=== PATIENT | male | born 1960 | race Two or more races ===

== ENCOUNTER 2024-06-28 16:14 | Inpatient (IN) | payer OTHER ==
[~2024-06-28] VITALS: Ht 162.6 cm; Wt 68.5 kg
[2024-06-28] VITALS: BP 169/71; TEMP 98.2; O2SAT 98
[2024-06-28 08:00] VITALS: BP 93/67; TEMP 98.2; O2SAT 96
[2024-06-28 17:00] LABS: BASOPHILS # (AUTO) 0.1 K/uL (0.0-0.2); BASOPHILS % (AUTO) 1.1 % (0.0-2.0); EOSINOPHILS # (AUTO) 0.3 K/uL (0.0-0.7); EOSINOPHILS % (AUTO) 5.4 % (0.0-6.0); HEMATOCRIT 30 % (39-51); HEMOGLOBIN 10.2 g/dL (13.5-17.5); LYMPHOCYTES # (AUTO) 1.1 K/uL (0.8-4.8); LYMPHOCYTES % (AUTO) 18.8 % (20.0-44.0); MEAN CORPUSCULAR HEMOGLOBIN 33 PG (26.0-33.0); MEAN CORPUSCULAR HGB CONC 34 g/dl (31.0-36.0); MEAN CORPUSCULAR VOLUME 97 fL (80-96); MONOCYTES # (AUTO) 0.5 K/uL (0.1-1.30); MONOCYTES % (AUTO) 8.3 % (2.0-12.0); NEUTROPHILS # (AUTO) 3.8 K/uL (1.8-8.9); NEUTROPHILS % (AUTO) 66.4 % (43.0-81.0); PLATELET COUNT (AUTO) 284 K/uL (150-450); RED BLOOD CELL COUNT(AUTO) 3.08 MIL/uL (4.5-6.0); RED CELL DISTRIBUTION WIDTH 14.5 % (11.5-15.0); WHITE BLOOD COUNT (AUTO) 5.7 K/uL (4.3-11.0)
[2024-06-28 17:07] LABS: CALCIUM, SERUM 9.3 mg/dL (8.5-10.1); CARBON DIOXIDE 36 mmol/L (21-32); CHLORIDE 96 mmol/L (98-107); CREATININE 3.4 mg/dL (0.6-1.3); GLUCOSE 149 mg/dL (74-106); POTASSIUM 4.6 mmol/L (3.5-5.1); SODIUM SERUM 135 mmol/L (136-145); UREA NITROGEN, BLOOD 14 mg/dL (7-18)
[2024-06-28] MEDS ORDERED: MORPHINE SULFATE INJ 4 MG/ML DISP.SYRIN ONE (17:15)
[2024-06-28] MEDS ORDERED: ONDANSETRON HCL/PF 4 MG/2 ML VIAL ONE (17:15)
[2024-06-28] MEDS: ONDANSETRON HCL/PF 4 MG/2 ML VIAL IVP ONE (17:24)
[2024-06-28] MEDS: MORPHINE SULFATE INJ 2 MG/ML DISP.SYRIN IV ONE (17:24)
[2024-06-28] MEDS ORDERED: LOSA100T31 PO (17:33)
[2024-06-28] MEDS ORDERED: GABA300C PO (17:33)
[2024-06-28] MEDS ORDERED: INSU100I30 SQ (17:33)
[2024-06-28] MEDS ORDERED: DAPA10TA PO (17:33)
[2024-06-28] MEDS ORDERED: SEVE400T3 PO (17:33)
[2024-06-28 20:00] VITALS: TEMP 97.5; O2SAT 99
[2024-06-28] MEDS ORDERED: ACETAMINOPHEN 325 MG TABLET PO PRN (20:30)
[2024-06-28] MEDS ORDERED: DEXTROSE 50%-WATER 50 ML DISP.SYRIN IV PRN (20:30)
[2024-06-28] MEDS ORDERED: GABAPENTIN 300 MG CAPSULE PO PRN (20:30)
[2024-06-28] MEDS ORDERED: ZOLPIDEM TARTRATE 5 MG TABLET PO PRN (20:30)
[2024-06-28] MEDS ORDERED: Z GUARD REMEDY 4 OZ OINT TP PRN (20:30)
[2024-06-28] MEDS ORDERED: MAG HYDROX/AL HYDROX/SIMETH 30 ML UDC PO PRN (20:30)
[2024-06-28] MEDS ORDERED: ONDANSETRON HCL/PF 4 MG/2 ML VIAL IVP PRN (20:30)
[2024-06-28] MEDS ORDERED: MAGNESIUM HYDROXIDE 30 ML UDC PO PRN (20:30)
[2024-06-28 21:00] VITALS: BP 190/99; TEMP 97.5; O2SAT 99
[2024-06-28] MEDS: BLOOD SUGAR DIAGNOSTIC 1 EACH STRIP VI SCH (22:30)
[2024-06-28] MEDS: HYDROCODONE/APAP 5/325MG TABLET PO PRN (22:33)
[2024-06-28] MEDS: *INSULIN REGULAR(HUMULIN R)HUM 100 UNIT/ML VIAL SQ PRN (22:37)
[2024-06-29] VITALS (7 sets, daily range): BP systolic 149–190; BP diastolic 75–89; TEMP 97.7–99.2; O2SAT 96–99
[2024-06-29] MEDS: hydrALAZINE HCL IV 20 MG VIAL IV PRN (04:41)
[2024-06-29] MEDS: INSULIN REGULAR, HUMAN 100 UNIT/ML 3 ML VIAL SQ PRN (07:01)
[2024-06-29 07:44] LABS: BASOPHILS # (AUTO) 0.1 K/uL (0.0-0.2); BASOPHILS % (AUTO) 0.9 % (0.0-2.0); EOSINOPHILS # (AUTO) 0.5 K/uL (0.0-0.7); EOSINOPHILS % (AUTO) 5.1 % (0.0-6.0); HEMATOCRIT 30 % (39-51); LYMPHOCYTES # (AUTO) 1.1 K/uL (0.8-4.8); LYMPHOCYTES % (AUTO) 12.5 % (20.0-44.0); MEAN CORPUSCULAR HEMOGLOBIN 33 PG (26.0-33.0); MEAN CORPUSCULAR HGB CONC 34 g/dl (31.0-36.0); MEAN CORPUSCULAR VOLUME 98 fL (80-96); MONOCYTES # (AUTO) 0.7 K/uL (0.1-1.30); MONOCYTES % (AUTO) 8.3 % (2.0-12.0); NEUTROPHILS # (AUTO) 6.4 K/uL (1.8-8.9); NEUTROPHILS % (AUTO) 73.2 % (43.0-81.0); PLATELET COUNT (AUTO) 256 K/uL (150-450); RED BLOOD CELL COUNT(AUTO) 3.03 MIL/uL (4.5-6.0); WHITE BLOOD COUNT (AUTO) 8.8 K/uL (4.3-11.0)
[2024-06-29] MEDS: DAPAGLIFLOZIN PROPANEDIOL 5 MG TABLET PO SCH (08:00)
[2024-06-29] MEDS: SEVELAMER CARBONATE 800 MG TABLET PO SCH (08:00)
[2024-06-29] MEDS: PANTOPRAZOLE 40 MG TABLET.DR PO SCH (08:06)
[2024-06-29] MEDS: LOSARTAN POTASSIUM 50 MG TABLET PO SCH (08:19)
[2024-06-29 08:42] LABS: CALCIUM, SERUM 8.4 mg/dL (8.5-10.1); CREATININE 4.8 mg/dL (0.6-1.3); MAGNESIUM 2.2 mg/dL (1.8-2.4); PHOSPHORUS 4.2 mg/dL (2.5-4.9); POTASSIUM 4.5 mmol/L (3.5-5.1)
[2024-06-29] MEDS ORDERED: PANTOPRAZOLE 40 MG VIAL IV SCH (09:00)
[2024-06-29 09:41] LABS: CHOLESTEROL 137 mg/dL (<200); HDL CHOLESTEROL 40 mg/dL (40-60); LDL 65 mg/dL (0-99); TRIGLYCERIDES 184 mg/dL (30-150)
[2024-06-29] MEDS: ASPIRIN 81 MG TAB.CHEW PO SCH (10:10)
[2024-06-29] MEDS: ATORVASTATIN 10 MG TABLET PO SCH (10:10)
[2024-06-30] VITALS: BP 134/70; TEMP 97.4; TEMP 97.9; O2SAT 96
[2024-06-30 04:00] VITALS: BP 160/83; TEMP 97.8; O2SAT 99
[2024-06-30 07:32] LABS: BASOPHILS # (AUTO) 0.1 K/uL (0.0-0.2); EOSINOPHILS # (AUTO) 0.5 K/uL (0.0-0.7); EOSINOPHILS % (AUTO) 6.7 % (0.0-6.0); HEMATOCRIT 30 % (39-51); LYMPHOCYTES # (AUTO) 1.4 K/uL (0.8-4.8); LYMPHOCYTES % (AUTO) 17.8 % (20.0-44.0); MEAN CORPUSCULAR HEMOGLOBIN 33 PG (26.0-33.0); MEAN CORPUSCULAR HGB CONC 34 g/dl (31.0-36.0); MEAN CORPUSCULAR VOLUME 97 fL (80-96); MONOCYTES # (AUTO) 0.6 K/uL (0.1-1.30); MONOCYTES % (AUTO) 8.5 % (2.0-12.0); PLATELET COUNT (AUTO) 252 K/uL (150-450); RED BLOOD CELL COUNT(AUTO) 3.03 MIL/uL (4.5-6.0); RED CELL DISTRIBUTION WIDTH 14.8 % (11.5-15.0); WHITE BLOOD COUNT (AUTO) 7.6 K/uL (4.3-11.0)
[2024-06-30 07:46] LABS: CALCIUM, SERUM 8.4 mg/dL (8.5-10.1); CREATININE 7.3 mg/dL (0.6-1.3); POTASSIUM 4.7 mmol/L (3.5-5.1)
[2024-06-30] MEDS ORDERED: ATORVASTATIN 10 MG TABLET PO SCH (09:00)
[2024-06-30] MEDS: ATORVASTATIN 10 MG TABLET PO ONE (09:35)
[2024-06-30 09:36] VITALS: BP 131/74
[2024-06-30 17:27] VITALS: BP 172/88
[2024-07-01] MEDS ORDERED: ATORVASTATIN 10 MG TABLET PO SCH (09:00)
[2024-07-06 03:12] LABS: HEPATITIS B SURFACE AB Reactive (.)
== END 2024-06-30 19:30 | disposition home or self-care (01) | DRG 203 ==
LOC: ER 16:32 → TELE 20:22 → MED 06-30 10:07
PROVIDERS: ATTEND Internal Medicine
PROC: 5A1D70Z Performance of Urinary Filtration, Intermittent, Less than 6 Hours Per Day (ICD-10-PCS; principal; 2024-06-30)
DX: M94.0 Chondrocostal junction syndrome [Tietze] (principal); I12.0 Hypertensive chronic kidney disease with stage 5 chronic kidney disease or end stage renal disease; E11.22 Type 2 diabetes mellitus with diabetic chronic kidney disease; N18.6 End stage renal disease; D63.1 Anemia in chronic kidney disease; D53.9 Nutritional anemia, unspecified; Z99.2 Dependence on renal dialysis; Z79.4 Long term (current) use of insulin; N25.0 Renal osteodystrophy
CPT/HCPCS: 36415; 71045-TC; 80048-TC; 80061-TC; 82962-TC; 83735-TC; 84100-TC; 84484-TC; 85025-TC; 86705; 86706; 87340; 90935-TC; 93307-TC; G0378; J0360; J1815; J2270; J2405; J7030

== ENCOUNTER 2025-08-10 09:02 | Inpatient (IN) | payer OTHER ==
[~2025-08-10] VITALS: Ht 152.4 cm; Wt 65.8 kg
[~2025-08-10 09:02] MED LIST: DAPA10TA PO; GABA300C PO; INSU100I30 SQ; LOSA100T31 PO; SEVE400T3 PO
[2025-08-10 09:37] LABS: PLATELET COUNT (AUTO) 170 K/uL (150-450); RED BLOOD CELL COUNT(AUTO) 3.57 MIL/uL (4.5-6.0); RED CELL DISTRIBUTION WIDTH 13.6 % (11.5-15.0); WHITE BLOOD COUNT (AUTO) 6.4 K/uL (4.3-11.0)
[2025-08-10 09:45] LABS: CALCIUM, SERUM 7.9 mg/dL (8.5-10.1); CREATININE 4.2 mg/dL (0.6-1.3); SODIUM SERUM 134 mmol/L (136-145); UREA NITROGEN, BLOOD 22 mg/dL (7-18)
[2025-08-10 09:58] LABS: NT-PRO BNP > 25000 pg/mL (0-125)
[2025-08-10] MEDS ORDERED: CINA30TA6 PO (11:17)
[2025-08-10] MEDS ORDERED: HYDR-4077 PO (11:17)
[2025-08-10] MEDS ORDERED: NIFE-34 PO (11:17)
[2025-08-10] MEDS ORDERED: LOSA50TA39 PO (11:17)
[2025-08-10] MEDS ORDERED: DOXA4TAB19 PO (11:17)
[2025-08-10] MEDS ORDERED: CYCL10TA9 PO (11:17)
[2025-08-10] MEDS ORDERED: SEVE800T28 PO (11:17)
[2025-08-10] MEDS ORDERED: MAG HYDROX/AL HYDROX/SIMETH 30 ML UDC PO PRN (12:00)
[2025-08-10] MEDS ORDERED: MAGNESIUM HYDROXIDE 30 ML UDC PO PRN (12:00)
[2025-08-10] MEDS ORDERED: Z GUARD REMEDY 4 OZ OINT TP PRN (12:00)
[2025-08-10] MEDS ORDERED: ONDANSETRON HCL/PF 4 MG/2 ML VIAL IVP PRN (12:00)
[2025-08-10] MEDS ORDERED: DEXTROSE 50%-WATER 50 ML DISP.SYRIN IV PRN (13:00)
[2025-08-10] MEDS ORDERED: CYCLOBENZAPRINE 10 MG TABLET PO PRN (13:00)
[2025-08-10 16:00] VITALS: BP 194/90; TEMP 97.3; O2SAT 98
[2025-08-10] MEDS: GABAPENTIN 300 MG CAPSULE PO SCH (16:31)
[2025-08-10] MEDS: LOSARTAN POTASSIUM 50 MG TABLET PO SCH (16:31)
[2025-08-10] MEDS: DOXAZOSIN MESYLATE (4 MG) 4 MG TABLET PO SCH (16:31)
[2025-08-10] MEDS: BLOOD SUGAR DIAGNOSTIC 1 EACH STRIP VI SCH (16:49)
[2025-08-10] MEDS: INSULIN REGULAR, HUMAN 100 UNIT/ML 3 ML VIAL SQ PRN (17:33)
[2025-08-10] MEDS: SEVELAMER CARBONATE 800 MG TABLET PO SCH (18:14)
[2025-08-10 20:00] VITALS: BP 186/82; TEMP 98.8; O2SAT 94
[2025-08-10] MEDS: CLONIDINE HCL 0.1 MG TABLET PO PRN (20:10)
[2025-08-10] MEDS: HEPARIN SODIUM, PORCINE 5000 UNITS/1 ML VIAL SQ ONE (20:46)
[2025-08-10] MEDS: ACETAMINOPHEN 325 MG TABLET PO PRN (21:27)
[2025-08-10 21:50] VITALS: BP 172/72
[2025-08-10 22:35] VITALS: BP 162/68
[2025-08-11] VITALS (8 sets, daily range): BP systolic 160–194; BP diastolic 75–94; TEMP 97.5–98.4; O2SAT 94–97
[2025-08-11] MEDS: *INSULIN REGULAR(HUMULIN R)HUM 100 UNIT/ML VIAL SQ PRN (00:15)
[2025-08-11] MEDS: CLONIDINE HCL 0.1 MG TABLET PO ONE (02:45)
[2025-08-11] MEDS ORDERED: TRAM50TA2 PO (03:11)
[2025-08-11] MEDS: TRAMADOL HCL 50 MG TABLET PO ONE (03:16)
[2025-08-11 06:50] LABS: PLATELET COUNT (AUTO) 167 K/uL (150-450); RED BLOOD CELL COUNT(AUTO) 3.59 MIL/uL (4.5-6.0); RED CELL DISTRIBUTION WIDTH 13.8 % (11.5-15.0); WHITE BLOOD COUNT (AUTO) 7.7 K/uL (4.3-11.0)
[2025-08-11] MEDS: PANTOPRAZOLE 40 MG TABLET.DR PO SCH (06:50)
[2025-08-11 07:16] LABS: CALCIUM, SERUM 7.5 mg/dL (8.5-10.1); CREATININE 6.3 mg/dL (0.6-1.3); PHOSPHORUS 3.9 mg/dL (2.5-4.9); SODIUM SERUM 136.0 mmol/L (136-145); UREA NITROGEN, BLOOD 43.0 mg/dL (7-18)
[2025-08-11] MEDS: CINACALCET HCL 30 MG TABLET PO SCH (08:17)
[2025-08-11] MEDS: NIFEDIPINE XL 60 MG TAB.ER.24 PO SCH (09:01)
[2025-08-11] MEDS: METOPROLOL TARTRATE 50 MG TABLET PO SCH (11:28)
[2025-08-11] MEDS: hydrALAZINE HCL IV 20 MG VIAL IV PRN (12:28)
[2025-08-11] MEDS: TRAMADOL HCL 50 MG TABLET PO SCH (20:28)
[2025-08-12] VITALS (11 sets, daily range): BP systolic 156–195; BP diastolic 70–85; TEMP 97.9–98.3; O2SAT 95–98
[2025-08-12] MEDS: ZOLPIDEM TARTRATE 5 MG TABLET PO PRN (00:18)
[2025-08-12 07:54] LABS: PLATELET COUNT (AUTO) 188 K/uL (150-450); RED BLOOD CELL COUNT(AUTO) 3.59 MIL/uL (4.5-6.0); RED CELL DISTRIBUTION WIDTH 13.7 % (11.5-15.0); WHITE BLOOD COUNT (AUTO) 6.8 K/uL (4.3-11.0)
[2025-08-12 08:15] LABS: LDL 63 mg/dL (0-99)
[2025-08-12 08:32] LABS: CALCIUM, SERUM 8.0 mg/dL (8.5-10.1); CREATININE 6.1 mg/dL (0.6-1.3); PHOSPHORUS 3.5 mg/dL (2.5-4.9); SODIUM SERUM 137.0 mmol/L (136-145); UREA NITROGEN, BLOOD 39.0 mg/dL (7-18)
[2025-08-12] MEDS: NIFEdipine XL (30MG) 30 MG TAB PO SCH (09:00)
[2025-08-12] MEDS: NITROGLYCERIN 30 GM TUBE TP SCH (10:00)
[2025-08-13] VITALS: BP 156/81; TEMP 98.8; O2SAT 95
[2025-08-13 04:00] VITALS: BP 190/86; TEMP 98.6; O2SAT 95
[2025-08-13 08:00] VITALS: BP 179/83; TEMP 98.1; O2SAT 98
[2025-08-13] MEDS: MINOXIDIL (2.5MG) 2.5 MG TABLET PO SCH (08:35)
[2025-08-13 13:08] LABS: CALCIUM, SERUM 7.7 mg/dL (8.5-10.1); CREATININE 6.1 mg/dL (0.6-1.3); SODIUM SERUM 136.0 mmol/L (136-145); UREA NITROGEN, BLOOD 41.0 mg/dL (7-18)
[2025-08-13] MEDS ORDERED: IV NS 0.9% 250 ML IV ONE (13:30)
[2025-08-13] MEDS ORDERED: IOHEXOL-350 100 ML VIAL IV ONE (13:30)
[2025-08-13] MEDS: METOPROLOL TARTRATE INJ 5 MG/5 ML AMPUL IVP PRN (14:10)
[2025-08-13] MEDS: NITROGLYCERIN 0.4 MG/TAB BOTTLE SL ONE (14:10)
[2025-08-13 16:00] VITALS: BP 92/56; TEMP 97.5; O2SAT 98
[2025-08-13 17:54] VITALS: BP 100/55
== END 2025-08-13 18:33 | disposition home or self-care (01) | DRG 198 ==
LOC: ER 09:11 → MED 14:07 → TELE 18:44 → MED 08-13 08:54
PROVIDERS: ADMIT Student in an Organized Health Care Education/Training Program; ATTEND Nurse Practitioner Acute Care
PROC: 5A1D70Z Performance of Urinary Filtration, Intermittent, Less than 6 Hours Per Day (ICD-10-PCS; principal; 2025-08-11)
DX: I25.10 Atherosclerotic heart disease of native coronary artery without angina pectoris (principal); I13.2 Hypertensive heart and chronic kidney disease with heart failure and with stage 5 chronic kidney disease, or end stage renal disease; I50.33 Acute on chronic diastolic (congestive) heart failure; N18.6 End stage renal disease; E87.1 Hypo-osmolality and hyponatremia; I16.0 Hypertensive urgency; D63.1 Anemia in chronic kidney disease; E11.22 Type 2 diabetes mellitus with diabetic chronic kidney disease; D64.9 Anemia, unspecified; E11.649 Type 2 diabetes mellitus with hypoglycemia without coma; Z99.2 Dependence on renal dialysis; E11.65 Type 2 diabetes mellitus with hyperglycemia; E78.5 Hyperlipidemia, unspecified; E87.6 Hypokalemia; E11.40 Type 2 diabetes mellitus with diabetic neuropathy, unspecified; Z79.84 Long term (current) use of oral hypoglycemic drugs; Z79.82 Long term (current) use of aspirin; Z79.4 Long term (current) use of insulin; H54.62 Unqualified visual loss, left eye, normal vision right eye; N25.0 Renal osteodystrophy; E87.70 Fluid overload, unspecified; R74.8 Abnormal levels of other serum enzymes; Z79.899 Other long term (current) drug therapy
CPT/HCPCS: 36415; 71045-TC; 75574; 80048-TC; 80061-TC; 82962-TC; 83735-TC; 83880; 84100-TC; 84443-TC; 84484-TC; 85025-TC; 86706; 87081-TC; 87340; 90935-TC; 93307-TC; G0378; J0360; J1644; J1815; J7050; Q9967

== ENCOUNTER 2025-08-15 11:28 | Emergency (ER) | payer OTHER ==
[~2025-08-15] VITALS: Ht 152.4 cm; Wt 69.4 kg
[~2025-08-15 11:28] MED LIST changes: +CINA30TA6 PO; +CYCL10TA9 PO; +DOXA4TAB19 PO; +HYDR-4077 PO; -LOSA100T31 PO; +LOSA50TA39 PO; +NIFE-34 PO; -SEVE400T3 PO; +SEVE800T28 PO; +TRAM50TA2 PO
[2025-08-15 11:36] VITALS: TEMP 98.6
[2025-08-15] MEDS: KETOROLAC TROMETHAMINE INJ 30 MG/ML VIAL IV ONE (12:57)
[2025-08-15] MEDS: PROCHLORPERAZINE EDISYLATE 10 MG/2 ML VIAL IVP ONE (12:57)
[2025-08-15 13:39] VITALS: BP 141/79; O2SAT 97
== END 2025-08-15 13:43 | disposition home or self-care (01) ==
LOC: ER 11:36
DX: R51.9 Headache, unspecified (principal); I11.9 Hypertensive heart disease without heart failure; E11.9 Type 2 diabetes mellitus without complications; E78.5 Hyperlipidemia, unspecified; F17.200 Nicotine dependence, unspecified, uncomplicated; Z79.84 Long term (current) use of oral hypoglycemic drugs; Z79.899 Other long term (current) drug therapy
CPT/HCPCS: 99285; 96374; 70450; 96375; 82962; J1885; J0780